=== PATIENT | female | born 1980 | race Caucasian/White ===

== ENCOUNTER 2016-12-05 08:53 | Emergency (ER) | payer OTHER ==
[~2016-12-05] VITALS: Ht 162.6 cm; Wt 59.0 kg
[~2016-12-05 08:53] MED LIST: CIPR500T4 PO; HYDR-3498 PO; NAPR-260 PO
[2016-12-05 08:54] VITALS: Ht 162.6 cm; Wt 59.0 kg
[2016-12-05 09:22] LABS: URINE BLOOD (Dip) POC Trace-intact (NEGATIVE)
[2016-12-05] MEDS ORDERED: LIDOCAINE/MYLANTA 40 ML BTL PO ONE (09:30)
[2016-12-05] MEDS ORDERED: FAMOTIDINE 20 MG TAB PO ONE (09:30)
[2016-12-05] MEDS ORDERED: ACETAMINOPHEN 325 MG TAB PO ONE (09:30)
[2016-12-05] MEDS ORDERED: FAMO-18 PO (09:55)
[2016-12-05] MEDS ORDERED: NITR-58 PO (09:55)
[2016-12-05] MEDS ORDERED: EXCED PO (09:56)
--- NOTE | 2016-12-05 10:52 | ERD ---
ER Documentation Chief Complaint Date/Time DATE: 12/05/16 TIME: 10:28 Chief Complaint EPIGASTRIC PAIN W/WORRELL [id number] HPI Patient is a 36-year-old female with a past history of migraines who presents to the ED with headache, epigastric pain and dysuria. She states that she has had these headaches in the past. She denies stating that this is the worst headache of her life. She states that the pain is located in her forehead and face. She states that she also has neck pain. She denies nausea, vomiting or diarrhea. She denies numbness or tingling. She denies trauma. She states that she usually takes ibuprofen and Tylenol which helps with her pain. She is also here for epigastric pain and burning sensation in her throat. She states that this happens after she eats fried or spicy foods. She states that she has had this in the past. She states that she has a lot of burping and burning in her throat. She has not taken any medications for her symptoms. She also complains of bad smelling urine with no dysuria or hematuria. She denies back pain. Denies fever or chills. Denies dizziness. Denies leg pain or leg swelling. ROS All systems reviewed and are negative except as per history of present illness. Medications Home Meds Active Scripts Acetaminophen/Aspirin/Caffeine* (Excedrin*) 1 Tab Tab, 1 TAB PO BID for 28 Days , TAB Prov:RODRI OCONNOR PA-C 12/05/16 Nitrofurantoin Monohyd Macrocr* (Macrobid*) 100 Mg Capsr, 100 MG PO BID for 14 Days, CAP Prov:RODRI OCONNOR PA-C 12/05/16 Famotidine* (Pepcid*) 20 Mg Tablet, 20 MG PO BID for 10 Days, TAB Prov:RODRI OCONNORC 12/05/16 Hydrocodone Bit-Acetaminophen* ([place]*) 5-325 Mg Tab, 1 TAB PO Q6 Y for PAIN, # 7 TAB Prov:KOLTON MARIN DO 02/23/16 Naproxen* (Naprosyn*) 500 Mg Tablet, 500 MG PO BID Y for PAIN AND/OR INFLAMMATION, #20 TAB Prov:KOLTON MARIN DO 02/23/16 Ciprofloxacin Hcl* (Ciprofloxacin Hcl*) 500 Mg Tablet, 500 MG PO BID for 7 Days , TAB Prov:HOLEATHA PA-C 08/24/15 Allergies Allergies: Coded Allergies: No Known Allergy (Unverified , 02/23/16) PMhx/Soc History of Surgery: No Anesthesia Reaction: No Hx Neurological Disorder: No Hx Respiratory Disorders: No Hx Cardiac Disorders: No Hx Psychiatric Problems: No Hx Miscellaneous Medical Probl: No Hx Alcohol Use: No Hx Substance Use: No Hx Tobacco Use: No Smoking Status: Never smoker FmHx Family History: No coronary disease, No diabetes, No other Physical Exam Vitals Vital Signs Date Time Temp Pulse Resp B/P Pulse Ox O2 Delivery O2 Flow Rate FiO2 12/05/16 08:54 97.4 73 20 132/76 100 Physical Exam GENERAL: Well-developed, well-nourished female. Appears in no acute distress. HEAD: Normocephalic, atraumatic. EYES: Pupils are equally reactive bilaterally. EOMs grossly intact. No conjunctival erythema. ENT: Moist mucous membranes. No uvula deviation. No kissing tonsils. No exudates. NECK: Supple. No lymphadenopathy or thyromegaly. No meningismus. negative kernig. negative brudinski. LUNG: Clear to auscultation bilaterally. No rhonchi, wheezing, rales or coarse breath sounds. HEART: Regular rate and rhythm. No murmurs, rubs or gallops. ABDOMEN: No scars, ecchymosis or rashes noted. Soft, mild tenderness in epigastric and nondistended. Positive bowel sounds in all four quadrants. No rebound tenderness, no guarding. (-) McBurneys point tenderness. No CVA tenderness. negative castorena sign. no ruq pain. BACK: No midline tenderness. Extremities: Equal pulses bilaterally. No peripheral clubbing, cyanosis or edema. No unilateral leg swelling. NEUROLOGIC: Alert and oriented. Moving all four extremities. 5/5 strength in all extremities. Normal speech. Steady gait. SKIN: Normal color. Warm and dry. No rashes or lesions. Capillary refill < 2 seconds Results 24 hrs Laboratory Tests Test 12/05/16 09:24 Bedside Urine pH (LAB) 6.5 Bedside Urine Protein (LAB) Negative Bedside Urine Glucose (UA) Negative Bedside Urine Ketones (LAB) Negative Bedside Urine Blood Trace-intact Bedside Urine Nitrite (LAB) Negative Bedside Urine Leukocyte Esterase (L Trace Current Medications Medications (Trade) Dose Ordered Sig/Panchito Route PRN Reason Start Time Stop Time Status Last Admin Dose Admin Miscellaneous Medication (Gi Cocktail (2)) 40 ml ONCE ONCE PO 12/05/16 09:30 12/05/16 09:31 DC 12/05/16 09:28 Famotidine (Pepcid) 20 mg ONCE ONCE PO 12/05/16 09:30 12/05/16 09:31 DC 12/05/16 09:27 Acetaminophen (Tylenol Tab) 650 mg ONCE ONCE PO 12/05/16 09:30 12/05/16 09:31 DC 12/05/16 09:28 Procedures/MDM ER COURSE: I kept the patient and/or family informed of laboratory and diagnostic imaging results throughout the emergency room course. LABORATORY STUDIES Urine dip shows trace leukocyteS with no hematuria. Negative test MEDICATIONS GI cocktail, Tylenol. Tolerated well and stated improvement in symptoms. MEDICAL DECISION MAKING: This is a 36-year-old female who presents with headache, epigastric pain, bad odor urine. Vital signs were reviewed. Patient is afebrile. Patient is not hypoxic. Patient's headache is of unknown etiology likely migraines. Patient has had these headaches in the past and I do not think further imaging studies such as a CT scan was warranted. Her cranial nerve exam was intact and she was neurovascularly intact. Patient's epigastric pain is likely related to GERD. She had improvement in symptoms after GI cocktail I do not think an ultrasound of blood work was necessary at this time as patient did not have right upper quadrant pain and she stated that she had burning sensation in her throat as well as burping. Patient likely has cystitis. Low suspicion for ACS, AAA, perforated ulcer, bowel obstruction, cholecystitis, choledocholithiasis, cholangitis, pancreatitis, hepatic abscess, appendicitis, diverticulitis, gastroenteritis, hepatitis, peptic ulcer disease. Low suspicion for ovarian torsion, PID, tuboovarian abscess, ectopic , bowel obstruction, pyelonephritis, appendicitis, cervicitis, obstructed or septic stone. DISCHARGE: At this time, patient is stable for discharge and outpatient management with no new complaints during the ER course. Patient was sent home with Excedrin Pepcid , Macrobid. Patient will be discharged home with instructions to recheck for new or worsening symptoms such as fever, nausea, weakness, LOC and to follow up with primary care in the next 1-2 days. Patient was advised to return to the ER for any new or worsening symptoms. Plan was discussed and patient and/or family understands and agrees. Home instructions were given. Departure Diagnosis: Primary Impression: Acid reflux Esophagitis presence: esophagitis presence not specified Qualified Code: K21.9 - Gastroesophageal reflux disease, esophagitis presence not specified Additional Impression: Cystitis Condition: Stable Patient Instructions: Gerd (Adult), Bladder Infection (Cystitis), Female (Child ) [facility] Usted se worrell hecho un examen mdico de control que le indica que no est en mallory condicin que requiera tratamiento urgente en el Departamento de Emergencia. Un estudio ms profundo y el tratamiento de stringer condicin pueden esperar sin ningn riesgo hasta que usted sea atendida/o en el consultorio de stringer mdico o mallory cl cat. Es responsabilidad suya arreglar mallory lc para el seguimiento del ibrahima. MANEJO DE CONDICIONES NO URGENTES EN EL FUTURO 1) Si usted tiene un mdico de atencin primaria: Usted debera llamar a stringer mdico de atencin primaria antes de venir al departamento de emergencia. Despus de las horas de consultorio, stringer doctor o stringer asociado/a est disponible por telfono. El mdico o enfermero de christianne en el servicio telefnico puede asesorarle por kareem medio para atender el problema, o ibrahima contrario se puede programar mallory lc. 2) Si usted no tiene un mdico de atencin primaria: Llame al mdico o clnica de referencia que aparece abajo niko las horas de consultorio para hacer mallory lc para que le vean. CLINICAS: [facility] 580 [phone] [address] [facility] [phone] [id number] [phone] [facility] [phone] [facility] [phone] [address] [facility]. [phone] [address] Additional Instructions: Llame al doctor MAANA y cate mallory LC PARA DENTRO DE 1-2 JOHANSEN.Dgale a la secretaria que nosotros le instruimos hacer esta lc.Avise o llame si stringer condicin se empeora antes de la lc. Regresa aqui si peor o no mejor. RODRI OCONNOR PA-C December 05, 2016 10:38
== END 2016-12-05 10:08 | disposition home or self-care (01) ==
LOC: FTE 08:53
DX: K21.9 Gastro-esophageal reflux disease without esophagitis (principal); N30.90 Cystitis, unspecified without hematuria
CPT/HCPCS: 81003; Z7610; 99283